=== PATIENT | male | born 1945 | race Caucasian/White ===

== ENCOUNTER 2017-06-23 21:40 | Inpatient (IN) | payer OTHER, MEDICARE ==
--- NOTE | 2017-06-24 00:26 | ER Document Report ---
ED General - General Chief Complaint: Shortness Of Breath Stated Complaint: SHORTNESS OF BREATH Time Seen by Provider: 06/24/17 00:23 Notes: Patient is a 72-year-old male who presents with complaint of dyspnea. Says that he does he has had little more dyspnea with exertion. He says he thinks this is all stress related. He says that they recent moved here from [place]. He had problems selling her house. He said people backed out on the house that they were selling and had difficulty moving here. He does have history of coronary disease. He has had 2 stents placed back in 2006. No recent cardiac cath. Last cardiac stress test was 1 year ago and was normal. He is followed by the [place]. He says also had problems with his right lower extremity. He says some swelling and edema in the right lower extremity. He [facility] who told him that it was probably a heel spur. He was also very given Patent to take but he did not want to take it because he read the side effect profile. He says he is given the appendix is also having a numbness type sensation or shooting up and down his right leg. Says because of this is having a hard time of walking and is causing him to have to exert himself or when he walks because of his right leg he says he therefore is been little more short of breath. He says also he has had more stress because of the above-mentioned situation. He denies any chest pain at all. He denies any chest pressure or heaviness. He says his presentation is not similar to when he had his previous heart attack. TRAVEL OUTSIDE OF THE [place] IN LAST 30 DAYS: No - Related Data Allergies/Adverse Reactions: quinine Allergy (Mild, Verified 06/24/17 02:05) rash Home Medications: Current Home Medications Aspirin [Aspirin 81 mg Chewable Tablet] 81 mg PO DAILY 06/24/17 [History] Cholecalciferol (Vitamin D3) [Vitamin D3] 5,000 unit PO DAILY 06/24/17 [History] Digoxin [Lanoxin] 125 mcg PO DAILY 06/24/17 [History] Furosemide 80 mg PO DAILY 06/24/17 [History] Levothyroxine Sodium [Synthroid 0.1 mg Tablet] 0.1 mg PO DAILY 06/24/17 [History ] Losartan Potassium 100 mg PO DAILY 06/24/17 [History] Magnesium Oxide [Magnesium] 400 mg PO DAILY 06/24/17 [History] Meloxicam 15 mg PO DAILY 06/24/17 [History] Metoprolol Tartrate 100 mg PO BID 06/24/17 [History] Nitroglycerin [Nitrostat 0.4 mg (1/150 Gr) Tabs 25/Bottle] 0.4 mg SL Q5MP PRN [History] Pravastatin Sodium 80 mg PO DAILY 06/24/17 [History] Spironolactone 50 mg PO DAILY 06/24/17 [History] Past Medical History - Social History Smoking Status: Unknown if Ever Smoked Frequency of alcohol use: None Drug Abuse: None Family History: Reviewed & Not Pertinent Review of Systems - Review of Systems Notes: My Normal Review Basic REVIEW OF SYSTEMS: CONSTITUTIONAL : Denies fever, chills, or sweats. Denies recent illness. EENT: Denies eye, ear, throat, or mouth pain or symptoms. Denies nasal or sinus congestion. CARDIOVASCULAR: Denies chest pain. RESPIRATORY: D some dyspnea with exertion GASTROINTESTINAL: Denies abdominal pain. Denies nausea, vomiting, or diarrhea. MUSCULOSKELETAL: Right leg pain and swelling. SKIN: Denies rash or skin lesions. NEUROLOGICAL: Denies altered mental status or loss of consciousness. Denies headache. Denies weakness or paralysis or loss of use of either side. Denies problems with gait or speech. Denies sensory or motor loss. PSYCHIATRIC: Plans of recent stressors. ALL OTHER SYSTEMS REVIEWED AND NEGATIVE. Physical Exam - Vital signs Vitals: Temp Pulse Resp BP Pulse Ox 98.6 F 102 H 18 135/67 H 93 06/23/17 22:13 06/23/17 22:13 06/23/17 22:13 06/23/17 22:13 06/23/17 22:13 - Notes Notes: General Appearance: Well nourished, alert, cooperative, no acute distress, no obvious discomfort. Well-appearing. Vitals: reviewed, See vital signs table. Head: no swelling or tenderness to the head Eyes: PERRL, EOMI, Conjuctiva clear Mouth: No decreasd moisture Throat: No tonsillar inflammation, No airway obstruction, No lymphadenopathy Neck: Supple, no neck tenderness, Lungs: No wheezing, No rales, No rhonci, No accessory muscle use, good air exchange bilaterally. Heart: Normal rate, Regular rythm, No murmur, no rub Abdomen: Normal BS, soft, No rigidity, No abdominal tenderness, No guarding, no rebound, no abdominal masses, no organomegaly Extremities: strength 5/5 in all extremities, good pulses in all extremities, no swelling or tenderness in the extremities, 2+ edema in right lower extremity. Trace edema left lower extremity. Skin: warm, dry, appropriate color, no rash Neuro: speech clear, oriented x 3, normal affect, responds appropriately to questions. Course - Re-evaluation Re-evalutation: 06/24/17 05:[address] angios shows evidence of acute pulmonary emboli. Despite the amount of emboli he has he actually clinically looks well. He does not have significant tachycardia. He has had little bit of intermittent hypoxemia. His blood pressure is been very normal. He is in no distress. I will place him on a heparin drip. I spoken with the hospitalist, Dr. Cruz, who agrees to admit the patient. Of note there is a temp of 100.2 in the chart. I asked the nurse where this came from his rectal temp. This patient is afebrile. Dictation of this chart was performed using voice recognition software; therefore, there may be some unintended grammatical errors. 06/24/17 05:54 - Vital Signs Vital signs: Temp Pulse Resp BP Pulse Ox 98.6 F 102 H 25 H 131/82 H 94 06/23/17 22:13 06/23/17 22:13 06/24/17 05:01 06/24/17 05:01 06/24/17 05:01 - Laboratory Result Diagrams: 06/24/17 00:40 06/24/17 02:56 Laboratory results interpreted by me: 06/24/17 06/24/17 00:40 02:56 WBC 11.5 H RBC 4.33 L BUN 25 H Creatinine 1.31 H Est GFR (Non-Af Amer) 54 L Creatine Kinase 50 L - EKG Interpretation by Me Additional EKG results interpreted by me: 06/24/17 00:25 EKG is reviewed and interpreted by me. EKG shows normal sinus rhythm with rate of [address] segment elevation or depression. No ischemic T-wave inversions. MI interval, QRS duration, QTc intervals are within normal range. No old EKG available for comparison. Patient does have Q waves in the anterior inferior leads as well as in the lateral leads. Procedures - Additional Procedures US guided IV Additional Procedures: IV insertion Notes: 06/24/17 05:06 Patient needed a different IV for the CTA of his chest. Nursing staff is unable to place peripheral IV adequate for CT due to patient having very difficult peripheral venous structures to cannulate. I did place a 18-gauge IV catheter is proximal to the left antecubital space. This was placed under ultrasound guidance. I received a good venous flash. IV did flush well without complications. Discharge - Discharge Clinical Impression: Pulmonary embolism Qualifiers: Pulmonary embolism type: other Chronicity: acute Acute cor pulmonale presence: with acute cor pulmonale Qualified Code(s): I26.09 - Other pulmonary embolism with acute cor pulmonale Condition: Stable Disposition: ADMITTED INPATIENT Admitting Provider: Hospitalist Unit Admitted: ICU
[2017-06-24 01:08] LABS: ABSOLUTE BASOPHILS # (AUTO) 0.1 10^3/uL (0.0-0.2); ABSOLUTE EOSINOPHILS # (AUTO) 0.5 10^3/uL (0.0-0.6); ABSOLUTE LYMPHOCYTES (AUTO) 2.4 10^3/uL (0.5-4.7); ABSOLUTE MONOCYTES (AUTO) 0.8 10^3/uL (0.1-1.4); ABSOLUTE NEUT (AUTO) 7.7 10^3/uL (1.7-8.2); BASOPHILS % (AUTO) 0.8 % (0-2); EOSINOPHILS % (AUTO) 4.3 % (0-6); HEMATOCRIT 39.4 % (37.9-51.0); HEMOGLOBIN 13.8 g/dL (13.5-17.0); LYMPHOCYTES % (AUTO) 20.8 % (13-45); MEAN CORPUSCULAR HEMOGLOBIN 31.9 pg (27.0-33.4); MEAN CORPUSCULAR VOLUME 91 fl (80-97); MONOCYTES % (AUTO) 6.7 % (3-13); RED BLOOD COUNT 4.33 10^6/uL (4.35-5.55); RED CELL DISTRIBUTION WIDTH 13.4 % (11.5-14.0); SEGMENTED NEUTROPHILS % (AUTO) 67.4 % (42-78); WHITE BLOOD COUNT 11.5 10^3/uL (4.0-10.5)
--- NOTE | 2017-06-24 01:20 | RADIOLOGY REPORT (SQ) ---
EXAM DESCRIPTION: CHEST SINGLE VIEW CLINICAL HISTORY: dyspnea COMPARISON: None. FINDINGS: Single frontal view of the chest. Cardiomegaly. Atherosclerotic calcification of the thoracic aorta. Leads overlie the chest. No consolidation, pneumothorax, or pleural effusion. No displaced rib fractures identified. Upper abdominal soft tissues are unremarkable. IMPRESSION: 1. No acute pulmonary process identified.
[2017-06-24 01:46] LABS: CREATINE KINASE MB 2.59 ng/mL (<4.55)
[2017-06-24 02:00] LABS: TROPONIN I 0.058 ng/mL
[2017-06-24 03:33] LABS: ALANINE AMINOTRANSFERASE 39 U/L (21-72); ALKALINE PHOSPHATASE 93 U/L (38-126); ANION GAP 16 (5-19); ASPARTATE AMINO TRANSFERASE 27 U/L (17-59); BILIRUBIN,DIRECT 0.4 mg/dL (0.0-0.4); BILIRUBIN,TOTAL 0.9 mg/dL (0.2-1.3); BLOOD UREA NITROGEN 25 mg/dL (7-20); CALCIUM 9.1 mg/dL (8.4-10.2); CARBON DIOXIDE 27 mmol/L (22-30); CHLORIDE 100 mmol/L (98-107); CREATINE KINASE 50 U/L (55-170); CREATININE RESULT 1.31 mg/dL (0.52-1.25); GLUCOSE 105 mg/dL (75-110); POTASSIUM 4.4 mmol/L (3.6-5.0); SODIUM 142.5 mmol/L (137-145); TOTAL PROTEIN 6.7 g/dL (6.3-8.2)
[2017-06-24] MEDS ORDERED: NORMAL SALINE 500 ML IV ONE (04:08)
[2017-06-24] MEDS ORDERED: ONDANSETRON HCL INJ/PF 4 MG/2 ML SDV IV PRN (05:50)
[2017-06-24] MEDS ORDERED: ACETAMINOPHEN 325 MG TABLET PO PRN (05:50)
[2017-06-24] MEDS ORDERED: LEVALBUTEROL HCL NEB 1.25 MG/3 ML AMPUL NEB PRN (05:50)
[2017-06-24] MEDS ORDERED: HEPARIN SODIUM,PORCINE/D5W 25,000 UNIT/250 ML RTUINJ IV PRN ×2 (05:50→05:57)
[2017-06-24] MEDS ORDERED: HEPARIN SOD (PORCINE) 1,000 UNIT/ML 10 ML VIAL IV ONE (05:50)
[2017-06-24] MEDS ORDERED: MAG HYDROX/AL HYDROX/SIMETH SUSP 30 ML UDCUP PO PRN (05:50)
[2017-06-24] MEDS ORDERED: NORMAL SALINE 1000 ML 1,000 ML IV PRN (05:50)
[2017-06-24] MEDS ORDERED: NITROGLYCERIN 0.4 MG/TAB 25 TAB/BOTTLE SL PRN (05:56)
[2017-06-24] MEDS ORDERED: LANSOPRAZOLE 15 MG TAB.RAP.DR PO SCH (06:00)
[2017-06-24] MEDS ORDERED: LEVOTHYROXINE SODIUM 0.1 MG TABLET PO SCH (06:00)
--- NOTE | 2017-06-24 06:06 | RADIOLOGY REPORT (SQ) ---
EXAM DESCRIPTION: CTA of the chest per PE protocol with contrast. CLINICAL HISTORY: dyspnea COMPARISON: None Available. TECHNIQUE: CTA of the chest obtained following the uncomplicated intravenous administration of 78 mL Isovue-370. 3-D/MIP reformatted images of the chest available for evaluation. FINDINGS: Chest: Mediastinal windows demonstrate an excellent contrast bolus. Sagittal pulmonary embolus with extensive clot burden involving the main, left, and right pulmonary arteries as well as all lobar and segmental pulmonary arterial branches. Dilation of the main pulmonary artery could be seen with pulmonary arterial hypertension. 2.7 cm hypodense right thyroid nodule. Atherosclerotic calcification of the thoracic aorta. Great vessels have normal anatomic configuration. No cardiomegaly. Coronary artery atherosclerosis. No pericardial effusion. No abnormalities of the esophagus. Scattered mediastinal lymph nodes are not enlarged by CT criteria. Lung windows demonstrate 6 mm right middle lobe pulmonary nodule best seen on image #40, series 4. There is a second 3 mm pulmonary nodule in the right middle lobe. 6 mm left lower lobe pulmonary nodule. No consolidation, pneumothorax or pleural effusion. No abnormalities of the visualized trachea or airways. Limited images of the upper abdomen demonstrate no abnormalities of the visualized liver, spleen, pancreas, adrenal glands, or kidneys. Prior cholecystectomy. No destructive osseous lesions. Degenerative change of the spine. DLP: 624.40 mGycm IMPRESSION: 1. There is a saddle pulmonary embolus involving the main, left, and right pulmonary arteries with extensive clot burden of the pulmonary arterial tree cannot involves all lobar arterial branches. 2. There is a 2.7 cm right thyroid nodule. Thyroid ultrasound recommended. 3. There are 3 indeterminate pulmonary nodules as detailed above, the largest in the right middle lobe measuring 6 mm. Follow-up CT of the chest in 6 months recommended for continued surveillance. Report called to Dr. Esequiel Mosqueda at 0504 hours on 06/24/2017 This exam was performed according to our departmental dose-optimization program, which includes automated exposure control, adjustment of the mA and/or kV according to patient size and/or use of iterative reconstruction technique.
[2017-06-24 06:29] LABS: ABSOLUTE BASOPHILS # (AUTO) 0.1 10^3/uL (0.0-0.2); ABSOLUTE EOSINOPHILS # (AUTO) 0.6 10^3/uL (0.0-0.6); ABSOLUTE LYMPHOCYTES (AUTO) 2.2 10^3/uL (0.5-4.7); ABSOLUTE MONOCYTES (AUTO) 0.8 10^3/uL (0.1-1.4); ABSOLUTE NEUT (AUTO) 7.5 10^3/uL (1.7-8.2); BASOPHILS % (AUTO) 0.8 % (0-2); EOSINOPHILS % (AUTO) 5.4 % (0-6); HEMATOCRIT 37.2 % (37.9-51.0); HEMOGLOBIN 13.1 g/dL (13.5-17.0); HGB HCT DIFFERENCE 2.1; LYMPHOCYTES % (AUTO) 19.7 % (13-45); MEAN CORPUSCULAR HEMOGLOBIN 32.1 pg (27.0-33.4); MEAN CORPUSCULAR HGB CONC 35.2 g/dL (32.0-36.0); MEAN CORPUSCULAR VOLUME 91 fl (80-97); MONOCYTES % (AUTO) 7.4 % (3-13); RED BLOOD COUNT 4.08 10^6/uL (4.35-5.55); RED CELL DISTRIBUTION WIDTH 13.4 % (11.5-14.0); SEGMENTED NEUTROPHILS % (AUTO) 66.7 % (42-78); WHITE BLOOD COUNT 11.2 10^3/uL (4.0-10.5)
[2017-06-24 06:43] LABS: PROTHROMBIN TIME 13.8 SEC (11.4-15.4)
[2017-06-24 06:44] LABS: PARTIAL THROMBOPLASTIN TIME 30.1 SEC (23.5-35.8)
--- NOTE | 2017-06-24 06:47 | PDOC H&P ---
History of Present Illness Admission Date/PCP: 06/24/17 05:57 History of Present Illness: GWENDOLYN NARANJO is a 72 year old male with past medical history of coronary artery disease, congestive heart failure, hypertension, hyperlipidemia who presents to the emergency department with shortness of breath. Patient reports that for the past month he has been attending the [place] [facility] because of lower extremity edema and pain. Patient reported that he began having worsening dyspnea on exertion, and generalized dyspnea over the last several days. Patient reports that he did attend [facility] and they told him that he had heel spurs and that he was short of breath because he had congestive heart failure. In the emergency department, patient is found to have large bilateral pulmonary emboli. Patient denies any chest pain and is only minimally short of breath at rest requiring 2 L of oxygen. Referred to the hospitalist service for pulmonary emboli Past Medical History Cardiac Medical History: Reports: Congestive Heart Failure, Myocardial Infarction, Hypertension Endocrine Medical History: Reports: Obesity Past Surgical History Past Surgical History: Reports: Cardiac Catheterization - Stents X 2, Cholecystectomy Social History Smoking Status: Never Smoker Frequency of Alcohol Use: None Hx Recreational Drug Use: No Hx Prescription Drug Abuse: No - Advance Directive Resuscitation Status: Full Code Surrogate healthcare decision maker:: Natalie Naranjo, Family History Family History: CAD, DM Parental Family History Reviewed: Yes Children Family History Reviewed: Yes Sibling(s) Family History Reviewed.: Yes Medication/Allergy Home Medications: Aspirin [Aspirin 81 mg Chewable Tablet] 81 mg PO DAILY 06/24/17 Cholecalciferol (Vitamin D3) [Vitamin D3] 5,000 unit PO DAILY 06/24/17 Digoxin [Lanoxin] 125 mcg PO DAILY 06/24/17 Furosemide 80 mg PO DAILY 06/24/17 Levothyroxine Sodium [Synthroid 0.1 mg Tablet] 0.1 mg PO DAILY 06/24/17 Losartan Potassium 100 mg PO DAILY 06/24/17 Magnesium Oxide [Magnesium] 400 mg PO DAILY 06/24/17 Meloxicam 15 mg PO DAILY 06/24/17 Metoprolol Tartrate 100 mg PO BID 06/24/17 Nitroglycerin [Nitrostat 0.4 mg (1/150 Gr) Tabs 25/Bottle] 0.4 mg SL Q5MP PRN Pravastatin Sodium 80 mg PO DAILY 06/24/17 Spironolactone 50 mg PO DAILY 06/24/17 Allergies/Adverse Reactions: quinine Allergy (Mild, Verified 06/24/17 02:05) rash Review of Systems Constitutional: ABSENT: chills, fever(s), headache(s), weight gain, weight loss Eyes: ABSENT: visual disturbances Ears: ABSENT: hearing changes Cardiovascular: PRESENT: dyspnea on exertion, edema. ABSENT: chest pain, orthropnea, palpitations Respiratory: PRESENT: dyspnea. ABSENT: cough, hemoptysis, sputum Gastrointestinal: ABSENT: abdominal pain, constipation, diarrhea, heartburn, hematemesis, hematochezia, melena, nausea, vomiting Genitourinary: ABSENT: dysuria, hematuria Musculoskeletal: ABSENT: joint swelling Integumentary: ABSENT: rash, wounds Neurological: ABSENT: abnormal gait, abnormal speech, confusion, dizziness, focal weakness, syncope Psychiatric: ABSENT: anxiety, depression, homidical ideation, suicidal ideation Endocrine: ABSENT: cold intolerance, heat intolerance, polydipsia, polyuria Hematologic/Lymphatic: ABSENT: easy bleeding, easy bruising Physical Exam Vital Signs: Temp Pulse Resp BP Pulse Ox 98.6 F 102 H 25 H 131/82 H 94 06/23/17 22:13 06/23/17 22:13 06/24/17 05:01 06/24/17 05:01 06/24/17 05:01 General appearance: PRESENT: mild distress, obese, well-developed, well- nourished Head exam: PRESENT: atraumatic, normocephalic Eye exam: PRESENT: conjunctiva pink, EOMI, PERRLA. ABSENT: scleral icterus Ear exam: PRESENT: normal external ear exam Mouth exam: PRESENT: moist, tongue midline Neck exam: PRESENT: JVD. ABSENT: lymphadenopathy, thyromegaly, tracheal deviation Respiratory exam: PRESENT: clear to auscultation brett, symmetrical, tachypnea - Mild, unlabored. ABSENT: accessory muscle use, prolonged expiratory phas, rales , retraction, rhonchi, wheezes Cardiovascular exam: PRESENT: RRR, +S1, +S2. ABSENT: diastolic murmur, gallop, rubs, systolic murmur Pulses: PRESENT: normal dorsalis pedis pul Vascular exam: PRESENT: normal capillary refill GI/Abdominal exam: PRESENT: normal bowel sounds, soft. ABSENT: distended, guarding, mass, organolmegaly, rebound, tenderness Rectal exam: PRESENT: deferred Extremities exam: PRESENT: calf tenderness, full ROM, +2 edema - Right lower extremity greater than left. ABSENT: clubbing, pedal edema Neurological exam: PRESENT: alert, awake, oriented to person, oriented to place , oriented to time, oriented to situation, CN II-XII grossly intact. ABSENT: motor sensory deficit Psychiatric exam: PRESENT: appropriate affect, normal mood. ABSENT: homicidal ideation, suicidal ideation Skin exam: PRESENT: dry, intact, warm. ABSENT: cyanosis, rash Results Laboratory Results: 06/24/17 06/24/17 06/24/17 00:40 00:40 02:56 WBC 11.5 H Hgb 13.8 Plt Count 206 Sodium 142.5 Potassium 4.4 Chloride 100 Carbon Dioxide 27 Anion Gap 16 BUN 25 H Creatinine 1.31 H Glucose 105 Calcium 9.1 Total Bilirubin 0.9 Direct Bilirubin 0.4 AST 27 ALT 39 Alkaline Phosphatase 93 Creatine Kinase 50 L CK-MB (CK-2) 2.59 Troponin I 0.058 Albumin 4.0 06/24/17 04:20 WBC Hgb Plt Count Sodium Potassium Chloride Carbon Dioxide Anion Gap BUN Creatinine Glucose Calcium Total Bilirubin Direct Bilirubin AST ALT Alkaline Phosphatase Creatine Kinase CK-MB (CK-2) Troponin I 0.081 Albumin Impressions: Chest X-Ray 06/24/17 01:01 IMPRESSION: 1. No acute pulmonary process identified. Chest/Abdomen CTA 06/24/17 04:07 IMPRESSION: 1. There is a saddle pulmonary embolus involving the main, left, and right pulmonary arteries with extensive clot burden of the pulmonary arterial tree cannot involves all lobar arterial branches. 2. There is a 2.7 cm right thyroid nodule. Thyroid ultrasound recommended. 3. There are 3 indeterminate pulmonary nodules as detailed above, the largest in the right middle lobe measuring 6 mm. Follow-up CT of the chest in 6 months recommended for continued surveillance. Report called to Dr. Esequiel Mosqueda at 0504 hours on 06/24/2017 This exam was performed according to our departmental dose-optimization program, which includes automated exposure control, adjustment of the mA and/or kV according to patient size and/or use of iterative reconstruction technique. Status: Imported from PACS Assessment & Plan - Diagnosis (1) Pulmonary embolism Qualifiers: Pulmonary embolism type: saddle Chronicity: acute Acute cor pulmonale presence: with acute cor pulmonale Qualified Code(s): I26.02 - Saddle embolus of pulmonary artery with acute cor pulmonale Is this a current diagnosis for this admission?: Yes Plan: Admit patient to the ICU and monitor for decompensation. Type and screen. Place patient on heparin ggt per policy. Monitor cardiac enzymes q6. Obtain STAT venous doppler BLE and STAT ECHO to eval RV function. Have considered thrombolytics, but patient is quite hemodymically stable. Have contacted [facility] for possible transfer for catheter directed lytics. (2) Acute hypoxemic respiratory failure Is this a current diagnosis for this admission?: Yes Plan: Continue oxygen (3) CHF (congestive heart failure) Qualifiers: Congestive heart failure type: unspecified congestive heart failure type Congestive heart failure chronicity: unspecified congestive heart failure chronicity Qualified Code(s): I50.9 - Heart failure, unspecified Is this a current diagnosis for this admission?: Yes Plan: pending echo continue coreg, spironolactone, lisinopril, digoxin (4) CAD (coronary artery disease) Qualifiers: Coronary Disease-Associated Artery/Lesion type: [place] artery [place] vs. transplanted heart: [place] heart Associated angina: without angina Qualified Code(s): I25.10 - Atherosclerotic heart disease of [place] coronary artery without angina pectoris Is this a current diagnosis for this admission?: Yes (5) HTN (hypertension) Qualifiers: Hypertension type: essential hypertension Qualified Code(s): I10 - Essential (primary) hypertension Is this a current diagnosis for this admission?: Yes (6) Obesity (BMI 30.0-34.9) Is this a current diagnosis for this admission?: Yes - Time Time Spent: 50 to 70 Minutes Critical Time spent with patient: 35 or more minutes Medications reviewed and adjusted accordingly: Yes Anticipated discharge: [facility] Within: when bed available - Inpatient Certification Based on my medical assessment, after consideration of the patient's comorbidities, presenting symptoms, or acuity I expect that the services needed warrant INPATIENT care.: Yes I certify that my determination is in accordance with my understanding of Medicare's requirements for reasonable and necessary INPATIENT services [42 CFR 412.3e].: Yes Medical Necessity: Need For IV Fluids, Need For Continuous Telemetry Monitoring Post Hospital Care: D/C Surgical Services Director Documentation
[2017-06-24 07:04] LABS: APPEARANCE,URINE CLEAR; BILIRUBIN,URINE NEGATIVE (NEGATIVE); GLUCOSE, URINE NEGATIVE (NEGATIVE); KETONES,URINE NEGATIVE (NEGATIVE); LEUKOCYTE ESTERASE,URINE NEGATIVE (NEGATIVE); NITRITE,URINE NEGATIVE (NEGATIVE); PROTEIN,URINE NEGATIVE (NEGATIVE); URINE SPECIFIC GRAVITY 1.009; UROBILINOGEN,URINE NEGATIVE mg/dL (<2.0)
[2017-06-24 07:11] LABS: CREATINE KINASE MB 3.15 ng/mL (<4.55); TROPONIN I 0.104 ng/mL
[2017-06-24] MEDS ORDERED: HEPARIN SOD (PORCINE) 1,000 UNIT/ML 10 ML VIAL IV PRN (08:58)
--- NOTE | 2017-06-24 09:15 | EKG REPORT ---
SEVERITY:- ABNORMAL ECG - SINUS RHYTHM INFERIOR INFARCT, AGE INDETERMINATE LATERAL INFARCT, AGE INDETERMINATE : Confirmed by: Cheyenne Tenorio 24-Jun-2017 09:14:57
--- NOTE | 2017-06-24 09:40 | PDOC DISCHARGE SUMMARY ---
General - Admit/Disc Date/PCP Admission Date/Primary Care Provider: 06/24/17 05:57 Discharge Date: 06/24/17 - Discharge Diagnosis (1) Saddle embolism of pulmonary artery Is this a current diagnosis for this admission?: Yes Summary: With Right Heart Strain Suggested by CTA of Chest Report: Pt has been accepted by Dr. Khan at [facility]. Pt presented to our facility with complaint of right leg swelling and shortness of breath for 1 month. Pt was found to have Saddle PE and extensive right lower leg DVT. Pt is currently on heparin. (2) Right leg DVT Is this a current diagnosis for this admission?: Yes Summary: Per U/S tech pt with extensive DVT in the Right ext. Currently awaiting official report. (3) Acute hypoxemic respiratory failure Is this a current diagnosis for this admission?: Yes Summary: in Setting of Saddle PE: Pt currently on Heparin and NC. (4) CAD (coronary artery disease) Is this a current diagnosis for this admission?: Yes Summary: Troponins slightly elevated in setting of PE: Will continue to monitor. (5) CHF (congestive heart failure) Is this a current diagnosis for this admission?: Yes Summary: Pt appears to be Euvolemic. (6) Obesity (BMI 30.0-34.9) Is this a current diagnosis for this admission?: Yes Summary: Encourage Dietary changes. - Additional Information Resuscitation Status: Full Code Discharge Diet: Clear Liquids Discharge Activity: Bedrest Home Medications: Aspirin [Aspirin 81 mg Chewable Tablet] 81 mg PO DAILY 06/24/17 Cholecalciferol (Vitamin D3) [Vitamin D3] 5,000 unit PO DAILY 06/24/17 Digoxin [Lanoxin] 125 mcg PO DAILY 06/24/17 Furosemide 80 mg PO DAILY 06/24/17 Levothyroxine Sodium [Synthroid 0.1 mg Tablet] 0.1 mg PO DAILY 06/24/17 Losartan Potassium 100 mg PO DAILY 06/24/17 Magnesium Oxide [Magnesium] 400 mg PO DAILY 06/24/17 Meloxicam 15 mg PO DAILY 06/24/17 Metoprolol Tartrate 100 mg PO BID 06/24/17 Nitroglycerin [Nitrostat 0.4 mg (1/150 Gr) Tabs 25/Bottle] 0.4 mg SL Q5MP PRN Pravastatin Sodium 80 mg PO DAILY 06/24/17 Spironolactone 50 mg PO DAILY 06/24/17 History of Present Illness Patient complains of: Shortness of breath chest pain History of Present Illness: Pt is a 72 year old male with history of shortness of breath and right leg swelling for 1 month. Pt states that he has gone to the [place] [facility] several times and was told that he had a bone spur and congestive heart failure exacerbation. Pt stated that due to his worsening of breathing he should go to the hospital for further evaluation. Hospital Course Hospital Course: Pt was admitted to our facility and placed on Heparin. Pt official CTA of chest resulted demonstrating right heart strain in setting of Saddle PE. Pt had U/S of right lower ext performed with per U/S tech extensive right lower ext DVT. Call was placed to [facility] due to our facility not being able to give Peripheral TPA or direct TPA at site to thrombus. Surgery was consulted but did not feel the IVC filter was necessary at this time. Surgery stated that they would discuss it and write a note. Physical Exam Vital Signs: Temp Pulse Resp BP Pulse Ox 98.4 F 102 H 17 140/77 H 93 06/24/17 08:00 06/24/17 07:00 06/24/17 07:00 06/24/17 07:00 06/24/17 07:00 Intake & Output 06/23/17 06/24/17 06/25/17 06:59 06:59 06:59 Output Total 250 Balance -250 Weight 122.5 kg General appearance: PRESENT: no acute distress, well-developed, well-nourished Head exam: PRESENT: atraumatic, normocephalic Eye exam: PRESENT: conjunctiva pink, EOMI, PERRLA. ABSENT: scleral icterus Ear exam: PRESENT: normal external ear exam Mouth exam: PRESENT: moist, tongue midline Neck exam: ABSENT: carotid bruit, JVD, lymphadenopathy, thyromegaly Respiratory exam: PRESENT: clear to auscultation brett. ABSENT: rales, rhonchi, wheezes Cardiovascular exam: PRESENT: RRR. ABSENT: diastolic murmur, rubs, systolic murmur Pulses: PRESENT: normal dorsalis pedis pul Vascular exam: PRESENT: normal capillary refill GI/Abdominal exam: PRESENT: normal bowel sounds, soft. ABSENT: distended, guarding, mass, organolmegaly, rebound, tenderness Rectal exam: PRESENT: deferred Extremities exam: PRESENT: +1 edema - +right lower ext + 1 pitting Musculoskeletal exam: PRESENT: full ROM Neurological exam: PRESENT: alert, awake, oriented to person, oriented to place , oriented to time, oriented to situation, CN II-XII grossly intact. ABSENT: motor sensory deficit Psychiatric exam: PRESENT: appropriate affect, normal mood. ABSENT: homicidal ideation, suicidal ideation Skin exam: PRESENT: dry, intact, warm. ABSENT: cyanosis, rash Results Laboratory Results: 06/24/17 06:18 06/24/17 06/24/17 06:18 06:18 WBC 11.2 H RBC 4.08 L Hgb 13.1 L Hct 37.2 L MCV 91 MCH 32.1 MCHC 35.2 RDW 13.4 Plt Count 175 Seg Neutrophils % 66.7 Lymphocytes % 19.7 Monocytes % 7.4 Eosinophils % 5.4 Basophils % 0.8 Absolute Neutrophils 7.5 Absolute Lymphocytes 2.2 Absolute Monocytes 0.8 Absolute Eosinophils 0.6 Absolute Basophils 0.1 TSH 2.96 06/24/17 06/24/17 06:18 06:18 Creatine Kinase 55 CK-MB (CK-2) 3.15 Troponin I 0.104 Impressions: Chest X-Ray 06/24/17 01:01 IMPRESSION: 1. No acute pulmonary process identified. Chest/Abdomen CTA 06/24/17 04:07 IMPRESSION: 1. There is a saddle pulmonary embolus involving the main, left, and right pulmonary arteries with extensive clot burden of the pulmonary arterial tree cannot involves all lobar arterial branches. 2. There is a 2.7 cm right thyroid nodule. Thyroid ultrasound recommended. 3. There are 3 indeterminate pulmonary nodules as detailed above, the largest in the right middle lobe measuring 6 mm. Follow-up CT of the chest in 6 months recommended for continued surveillance. Report called to Dr. Esequiel Mosqueda at 0504 hours on 06/24/2017 This exam was performed according to our departmental dose-optimization program, which includes automated exposure control, adjustment of the mA and/or kV according to patient size and/or use of iterative reconstruction technique. Plan Time Spent: Greater than 30 Minutes
--- NOTE | 2017-06-24 09:42 | PDOC H&P/TRANSFER SUM ---
General Admission Date/PCP: 06/24/17 05:57 Transfer Date: 06/24/17 Accepting Facility: [facility] Accepting Physician: Dr. Khan Resuscitation Status: Full Code - Transfer Diagnosis (1) Saddle embolism of pulmonary artery Current Visit: Yes Diagnosis Summary: With Right Heart Strain Suggested by CTA of Chest Report: Pt has been accepted by Dr. Khan at [facility]. Pt presented to our facility with complaint of right leg swelling and shortness of breath for 1 month. Pt was found to have Saddle PE and extensive right lower leg DVT. Pt is currently on heparin. (2) Acute hypoxemic respiratory failure Current Visit: Yes Diagnosis Summary: in Setting of Saddle PE: Pt currently on Heparin and NC. (3) CAD (coronary artery disease) Current Visit: Yes Diagnosis Summary: Troponins slightly elevated in setting of PE: Will continue to monitor. (4) CHF (congestive heart failure) Current Visit: Yes Diagnosis Summary: Pt appears to be Euvolemic. (5) Obesity (BMI 30.0-34.9) Current Visit: Yes Diagnosis Summary: Encourage Dietary changes. (6) Right leg DVT Current Visit: Yes Diagnosis Summary: Per U/S tech pt with extensive DVT in the Right ext. Currently awaiting official report. - Transfer Medications Home Medications: Aspirin [Aspirin 81 mg Chewable Tablet] 81 mg PO DAILY 06/24/17 Cholecalciferol (Vitamin D3) [Vitamin D3] 5,000 unit PO DAILY 06/24/17 Digoxin [Lanoxin] 125 mcg PO DAILY 06/24/17 Furosemide 80 mg PO DAILY 06/24/17 Levothyroxine Sodium [Synthroid 0.1 mg Tablet] 0.1 mg PO DAILY 06/24/17 Losartan Potassium 100 mg PO DAILY 06/24/17 Magnesium Oxide [Magnesium] 400 mg PO DAILY 06/24/17 Meloxicam 15 mg PO DAILY 06/24/17 Metoprolol Tartrate 100 mg PO BID 06/24/17 Nitroglycerin [Nitrostat 0.4 mg (1/150 Gr) Tabs 25/Bottle] 0.4 mg SL Q5MP PRN Pravastatin Sodium 80 mg PO DAILY 06/24/17 Spironolactone 50 mg PO DAILY 06/24/17 Transfer Medications: Current Medications Acetaminophen (Tylenol 325 Mg Tablet) 650 mg PO Q4HP PRN Stop: 07/24/17 05:49 Al Hydrox/Mg Hydrox/Simethicone (Maalox Plus Susp 30 Udcup) 15 ml PO Q6HP PRN Stop: 07/24/17 05:49 Aspirin (Aspirin 81 Mg Chewable Tablet) 81 mg PO DAILY [facility] Stop: 07/24/17 09:59 Atorvastatin Calcium (Lipitor 20 Mg Tablet) 20 mg PO QHS [facility] Stop: 07/24/17 21:59 Cholecalciferol (Vitamin D3 1000 Unit Tablet) 5,000 unit PO DAILY [facility] Stop: 07/24/17 09:59 Digoxin (Lanoxin 0.25 Mg Tablet) 0.125 mg PO DAILY [facility] Stop: 07/24/17 09:59 Docusate Sodium (Colace 100 Mg Capsule) 100 mg PO BID [facility] Stop: 07/24/17 09:59 Furosemide (Lasix 80 Mg Tablet) 80 mg PO DAILY [facility] Stop: 07/24/17 09:59 Heparin Sodium (Porcine) (Heparin Inj 1,000 Unit/Ml 10 Ml Vial) 0 - 15,000 unit IV .BOLUS PER PROTOCOL PRN; Protocol PRN Reason: RESPOND TO aPTT VALUE Stop: 07/24/17 08:57 Heparin Sodium/Dextrose (Heparin Rtu 25,000 Unit/250 Ml D5w Premix) 25,000 unit in 250 mls @ 0 mls/hr IV CONTINUOUS PRN; Protocol; Titrate PRN Reason: THIS MED IS NOT "PRN" Stop: 07/24/17 05:49 Sodium Chloride (Nacl 0.9% 1000 Ml Iv Soln) 1,000 mls @ 83 mls/hr IV CONTINUOUS PRN PRN Reason: THIS MED IS NOT "PRN" Stop: 07/24/17 05:49 Heparin Sodium/Dextrose (Heparin Rtu 25,000 Unit/250 Ml D5w Premix) 25,000 unit in 250 mls @ 0 mls/hr IV CONTINUOUS PRN; Protocol; Titrate PRN Reason: THIS MED IS NOT "PRN" Stop: 07/24/17 05:56 Lansoprazole (Prevacid 15 Mg Odt Tablet) 15 mg PO BID@0600,1700 [facility] Stop: 07/24/17 05:59 Last Admin: 06/24/17 07:50 Dose: 15 mg Levalbuterol HCl (Xopenex Neb 1.25 Mg/3 Ml Ampul) 1.25 mg NEB RTQ2HP PRN Stop: 07/24/17 05:49 Levothyroxine Sodium (Synthroid 0.1 Mg Tablet) 0.1 mg PO Q6AM [facility] Stop: 07/24/17 05:59 Last Admin: 06/24/17 07:50 Dose: 0.1 mg Losartan Potassium (Cozaar 50 Mg Tablet) 100 mg PO DAILY [facility] Stop: 07/24/17 09:59 Magnesium Oxide (Mag-Ox 400 Mg Tablet) 400 mg PO DAILY [facility] Stop: 07/24/17 09:59 Metoprolol Tartrate (Lopressor 100 Mg Tablet) 100 mg PO BID [facility] Stop: 07/24/17 09:59 Nitroglycerin (Nitrostat 0.4 Mg (1/150 Gr) Tabs 25/Bottle) 1 tab SL Q5MP PRN Stop: 07/24/17 05:55 Ondansetron HCl (Zofran Inj/Pf 4 Mg/2 Ml Sdv) 4 mg IV Q6HP PRN Stop: 07/24/17 05:49 Sodium Chloride (Saline Flush 2.5 Ml Monoject Prefil Syrin) 2.5 ml IV Q8 [facility] Stop: 07/24/17 05:59 Last Admin: 06/24/17 08:27 Dose: Not Given Spironolactone (Aldactone 25 Mg Tablet) 50 mg PO DAILY [facility] Stop: 07/24/17 09:59 - Allergies Allergies/Adverse Reactions: quinine Allergy (Mild, Verified 06/24/17 02:05) rash - Diet/Activity Discharge Diet: Clear Liquids Discharge Activity: Bedrest History of Present Illness Admission Date/PCP: 06/24/17 05:57 History of Present Illness: Pt is a 72 year old male with history of shortness of breath and right leg swelling for 1 month. Pt states that he has gone to the [place] clinic several times and was told that he had a bone spur and congestive heart failure exacerbation. Pt stated that due to his worsening of breathing he should go to the hospital for further evaluation. Past Medical History Cardiac Medical History: Reports: Congestive Heart Failure, Myocardial Infarction, Hypertension Endocrine Medical History: Reports: Obesity Psychiatric Medical History: Denies: Depression Past Surgical History Past Surgical History: Reports: Cardiac Catheterization - Stents X 2, Cholecystectomy Social History Smoking Status: Never Smoker Frequency of Alcohol Use: None Hx Recreational Drug Use: No Drugs: None Hx Prescription Drug Abuse: No - Advance Directive Resuscitation Status: Full Code Family History Family History: CAD, DM Parental Family History Reviewed: Yes Children Family History Reviewed: Yes Sibling(s) Family History Reviewed.: Yes Physical Exam Vital Signs: Temp Pulse Resp BP Pulse Ox 98.4 F 102 H 17 140/77 H 93 06/24/17 08:00 06/24/17 07:00 06/24/17 07:00 06/24/17 07:00 06/24/17 07:00 Intake & Output 06/23/17 06/24/17 06/25/17 06:59 06:59 06:59 Output Total 250 Balance -250 Weight 122.5 kg General appearance: PRESENT: no acute distress, well-developed, well-nourished Head exam: PRESENT: atraumatic, normocephalic Eye exam: PRESENT: conjunctiva pink, EOMI, PERRLA. ABSENT: scleral icterus Ear exam: PRESENT: normal external ear exam Mouth exam: PRESENT: moist, tongue midline Neck exam: ABSENT: carotid bruit, JVD, lymphadenopathy, thyromegaly Respiratory exam: PRESENT: clear to auscultation brett. ABSENT: rales, rhonchi, wheezes Cardiovascular exam: PRESENT: RRR. ABSENT: diastolic murmur, rubs, systolic murmur Pulses: PRESENT: normal dorsalis pedis pul Vascular exam: PRESENT: normal capillary refill GI/Abdominal exam: PRESENT: normal bowel sounds, soft. ABSENT: distended, guarding, mass, organolmegaly, rebound, tenderness Rectal exam: PRESENT: deferred Extremities exam: PRESENT: full ROM, +1 edema - + right lower ext. ABSENT: calf tenderness, clubbing, pedal edema Neurological exam: PRESENT: alert, awake, oriented to person, oriented to place , oriented to time, oriented to situation, CN II-XII grossly intact. ABSENT: motor sensory deficit Psychiatric exam: PRESENT: appropriate affect, normal mood. ABSENT: homicidal ideation, suicidal ideation Skin exam: PRESENT: dry, intact, warm. ABSENT: cyanosis, rash Results Laboratory Results: 06/24/17 06:18 06/24/17 06/24/17 06:18 06:18 WBC 11.2 H RBC 4.08 L Hgb 13.1 L Hct 37.2 L MCV 91 MCH 32.1 MCHC 35.2 RDW 13.4 Plt Count 175 Seg Neutrophils % 66.7 Lymphocytes % 19.7 Monocytes % 7.4 Eosinophils % 5.4 Basophils % 0.8 Absolute Neutrophils 7.5 Absolute Lymphocytes 2.2 Absolute Monocytes 0.8 Absolute Eosinophils 0.6 Absolute Basophils 0.1 TSH 2.96 06/24/17 06/24/17 06:18 06:18 Creatine Kinase 55 CK-MB (CK-2) 3.15 Troponin I 0.104 Impressions: Chest X-Ray 06/24/17 01:01 IMPRESSION: 1. No acute pulmonary process identified. Chest/Abdomen CTA 06/24/17 04:07 IMPRESSION: 1. There is a saddle pulmonary embolus involving the main, left, and right pulmonary arteries with extensive clot burden of the pulmonary arterial tree cannot involves all lobar arterial branches. 2. There is a 2.7 cm right thyroid nodule. Thyroid ultrasound recommended. 3. There are 3 indeterminate pulmonary nodules as detailed above, the largest in the right middle lobe measuring 6 mm. Follow-up CT of the chest in 6 months recommended for continued surveillance. Report called to Dr. Esequiel Mosqueda at 0504 hours on 06/24/2017 This exam was performed according to our departmental dose-optimization program, which includes automated exposure control, adjustment of the mA and/or kV according to patient size and/or use of iterative reconstruction technique. Assessment & Plan - Time Time Spent: 30 to 50 Minutes Anticipated dischagre: Duy
[2017-06-24] MEDS ORDERED: (PENDING PHARMACY ID) (Magnesium Oxide [Magnesium] 400 MG) PO SCH (10:00)
[2017-06-24] MEDS ORDERED: SPIRONOLACTONE 25 MG TABLET PO SCH (10:00)
[2017-06-24] MEDS ORDERED: ASPIRIN 81 MG TABLET, CHEWABLE PO SCH (10:00)
[2017-06-24] MEDS ORDERED: (PENDING PHARMACY ID) (Cholecalciferol (Vitamin D3) [Vitamin D3] 5,000 UNIT) PO SCH (10:00)
[2017-06-24] MEDS ORDERED: (PENDING PHARMACY ID) (Losartan Potassium [Losartan Potassium] 100 MG) PO SCH (10:00)
[2017-06-24] MEDS ORDERED: DOCUSATE SODIUM 100 MG CAPSULE PO SCH (10:00)
[2017-06-24] MEDS ORDERED: CHOLECALCIFEROL (D3) 1,000 UNIT TABLET PO SCH (10:00)
[2017-06-24] MEDS ORDERED: FUROSEMIDE 80 MG TABLET PO SCH (10:00)
[2017-06-24] MEDS ORDERED: METOPROLOL TARTRATE 100 MG TABLET PO SCH (10:00)
[2017-06-24] MEDS ORDERED: LOSARTAN POTASSIUM 50 MG TABLET PO SCH (10:00)
[2017-06-24] MEDS ORDERED: MAGNESIUM OXIDE 400 MG TABLET PO SCH (10:00)
[2017-06-24] MEDS ORDERED: SPIRONOLACTONE 50 MG PO SCH (10:00)
[2017-06-24] MEDS ORDERED: DIGOXIN 0.25 MG TABLET PO SCH (10:00)
[2017-06-24] MEDS ORDERED: (PENDING PHARMACY ID) (Pravastatin Sodium [Pravastatin Sodium] 80 MG) PO SCH (10:00)
[2017-06-24 10:18] VITALS: BP 134/85
--- NOTE | 2017-06-24 12:28 | XCELERA REPORT ---
[address] [address] Lower Extremity Venous Evaluation Name: GWENDOLYN NOONAN Age: 72 yrs Gender: Male : 1945 Patient Status: Inpatient Patient Location: ICU^[facility]^A Study Date: 06/24/2017 07:14 AM Procedure: Color flow and duplex imaging bilaterally of the veins of the lower extremities as well as the Common Femoral veins. Reason For Study: new Ordering Physician: JACK GOULD Performed By: Sylvia Winter Right Sided Venous Evaluation Abnormal vessel filling , no compression or Colour flow in the Femoral and Popliteal veins. Left Sided Venous Evaluation Normal vessel filling wall to wall, compression and augmentation as well as Colour flow down to the infrageniculate veins. Interpretation Summary Deep venous thrombosis in the right Femoral and Popliteal veins. concordant with a diagnosis of Pulmonary embolism. : JACK GOULD [place]
--- NOTE | 2017-06-24 20:16 | XCELERA REPORT ---
[address] [address] Transthoracic Echocardiogram Report Name: GWENDOLYN NOONAN Age: 72 yrs Gender: Male : 1945 Patient Status: Inpatient Patient Location: ICU^610^A Study Date: 06/24/2017 06:53 AM Height: 76 in Weight: 273 lb BSA: 2.5 m2 Procedure: A complete two-dimensional transthoracic echocardiogram was performed (2D, M-mode, spectral and color flow Doppler). The study was technically difficult with many images being suboptimal in quality. Reason For Study: new pe, assess rv strain Ordering Physician: JACK GOULD Performed By: Sylvia Winter Interpretation Summary The left ventricular ejection fraction is normal. Doppler measurements suggest pseudonormalized left ventricular relaxation, which is associated with grade II/IV or mild to moderate diastolic dysfunction There is borderline concentric left ventricular hypertrophy. The left ventricle is grossly normal size. Regional wall motion abnormalities cannot be excluded due to limited visualization. The right ventricular systolic function is mildly reduced. The right ventricle is grossly normal size. The left atrial size is normal. The right atrium is borderline dilated. There is a trace amount of mitral regurgitation There is no mitral valve stenosis. No aortic regurgitation is present. There is no aortic valve stenosis Right ventricular systolic pressure is estimated to be within upper limit of normal. There is a trace amount of tricuspid regurgitation The aortic root is not well visualized. The inferior vena cava was not visualized There is no pericardial effusion. MMode/2D Measurements & Calculations RVDd: 4.1 cm LVIDd: 5.1 cm FS: 28.8 % Ao root diam: 2.9 cm IVSd: 1.1 cm LVIDs: 3.7 cm EDV(Teich): 126.2 ml LVPWd: 1.1 cm ESV(Teich): 56.6 ml Ao root area: 6.8 cm2 EF(Teich): 55.2 % LA dimension: 3.0 cm Doppler Measurements & Calculations MV E max jeane: MV P1/2t max jeane: Ao V2 max: LV V1 max P.8 cm/sec 51.8 cm/sec 159.5 cm/sec 4.5 mmHg MV A max jeane: MV P1/2t: 43.6 msec Ao max PG: LV V1 max: 87.4 cm/sec 10.2 mmHg 106.1 cm/sec MV E/A: 0.59 MVA(P1/2t): 5.0 cm2 MV dec slope: 347.9 cm/sec2 PA V2 max: TR max jeane: 81.4 cm/sec 229.4 cm/sec PA max PG: TR max P.0 mmHg 2.7 mmHg Left Ventricle The left ventricle is grossly normal size. There is borderline concentric left ventricular hypertrophy. The left ventricular ejection fraction is normal. Doppler measurements suggest pseudonormalized left ventricular relaxation, which is associated with grade II/IV or mild to moderate diastolic dysfunction. Regional wall motion abnormalities cannot be excluded due to limited visualization. Right Ventricle The right ventricle is grossly normal size. The right ventricular systolic function is mildly reduced. Atria The right atrium is borderline dilated. The left atrial size is normal. Interarterial septum not well visualized and not well dopplered. Cannot comment on ASD/PFO presence. Mitral Valve The mitral valve is not well visualized. There is no mitral valve stenosis. There is a trace amount of mitral regurgitation. Aortic Valve The aortic valve is grossly normal. There is no aortic valve stenosis. No aortic regurgitation is present. Tricuspid Valve The tricuspid valve is not well visualized secondary to technical limitations. There is no tricuspid stenosis. There is a trace amount of tricuspid regurgitation. Right ventricular systolic pressure is estimated to be within upper limit of normal. Pulmonic Valve The pulmonic valve is not well visualized. Great Vessels The aortic root is not well visualized. The inferior vena cava was not visualized. Effusions There is no pericardial effusion. : JACK GOULD > Cheyenne Tenorio
[2017-06-24] MEDS ORDERED: ATORVASTATIN CALCIUM 20 MG TABLET PO SCH (22:00)
== END 2017-06-24 12:00 | disposition short-term general hospital (02) | DRG 175 ==
LOC: ER 21:40 → EH 06-24 05:57 → ICU 06-24 06:45
PROVIDERS: ADMIT Family Medicine; ATTEND Family Medicine
DX: I26.02 Saddle embolus of pulmonary artery with acute cor pulmonale (principal); J96.01 Acute respiratory failure with hypoxia; I82.491 Acute embolism and thrombosis of other specified deep vein of right lower extremity; I25.10 Atherosclerotic heart disease of native coronary artery without angina pectoris; I50.9 Heart failure, unspecified; I11.0 Hypertensive heart disease with heart failure; E04.1 Nontoxic single thyroid nodule; R91.8 Other nonspecific abnormal finding of lung field; Z79.82 Long term (current) use of aspirin; Z79.899 Other long term (current) drug therapy; Z95.5 Presence of coronary angioplasty implant and graft
CPT/HCPCS: 36415; 71010; 71275; 80053; 81001; 82550; 82553; 84443; 84484; 85025; 85610; 85730; 93005; 93010; 93306; 93970; 99285; J1644; J3490; J7040